=== PATIENT | female | born 1945 | race Caucasian/White ===

== ENCOUNTER → 2017-11-10 | Outpatient (CLI) | payer MEDICARE, OTHER ==
[~2017-11-10] MED LIST: ASCO-188 PO; ASCO-201 PO; ASPI-1471 PO; ASPI-715 PO; ATR80PT PO; BLOO-1318 MC; CALC-852 PO; CALC-922 PO; CALC250T7 PO; CALC600T63 PO; CEP500 PO; CHOL200022 PO; CLIN-75 PO; CYCL10TA29 PO; FAMO10TA86 PO; FLAX100053 PO; FLU45SYR17 IM; FLU45SYR25 IM ONLY; FLU60SYR30 IM ONLY; GLUC-178 PO; GLUC-198 PO; IBUP-56 PO; LEVO-311 PO; LEVO50 PO; LOVA40TA PO; LOVA40TA89 PO; METF-411 PO; METO-1 PO; METO-253 PO; METO1TAB19 PO; METXL50 PO; METXR500 PO; OXYC-865 PO; PNEU0.5D3 IM; RANI75TA5 PO; UBID200C21 PO; UBID50CA24 PO
--- NOTE | 2017-11-10 10:23 | RADIOLOGY IMAGING REPORT ---
FACILITY: [facility] PATIENT NAME: Carito Isbell : 1945 MR: [id number] V: [id number] EXAM DATE: ORDERING PHYSICIAN: DUANE SOLER TECHNOLOGIST: Location: [facility] - [place] Patient: Carito Isbell : 1945 Visit/Account:[id number] Date of Sevice: 11/10/2017 EXAMINATION: MRI lumbar spine without IV contrast HISTORY: Low back pain with radiation to right posterior thigh. Bilateral low back pain with right-s ided sciatica. COMPARISON: None. TECHNIQUE: Multi-planar, multi-sequence lumbar spine MRI was performed without intravenous contrast administration. FINDINGS: Alignment: Normal. Vertebral marrow signal: Negative. Distal thoracic cord: Negative. Conus: negative, terminates at L1-2. Cauda equina: Negative. Paravertebral soft tissues: Negative. Visualized abdominal and pelvic structures: Negative. Disc spaces: Lower thoracic spine: Normal. L1-2: Disc desiccation with a minimal concentric disc bulge. No significant central canal or foramina l stenosis. L2-3: Mild concentric disc bulge and bilateral facet hypertrophy. No significant central canal or for aminal stenosis. L3-4: Broad-based disc protrusion with annular tear, bilateral facet hypertrophy and ligamentum flavu m laxity. Trace effusions in the facet joints. Mild bilateral foraminal stenosis, right greater than left, without significant central canal stenosis. L4-5: Mild disc space narrowing and desiccation with a mild concentric disc bulge. There is a superim posed right paracentral disc protrusion. Bilateral facet hypertrophy and ligamentum flavum laxity wit h trace effusions in the facet joints. Moderate central canal stenosis and severe right lateral reces s stenosis with mass effect on the transiting right L5 nerve root. Mild bilateral foraminal stenosis. L5-S1: Broad-based disc protrusion with annular tear and bilateral facet hypertrophy. No significant central canal or foraminal stenosis. IMPRESSION: 1. Degenerative disc disease and facet arthropathy is worst at L4-5 where there is a right paracentra l disc protrusion causing severe right lateral recess stenosis and mass effect on the transiting righ t L5 nerve root. Please see the findings for description of individual level disease. 2. Annular tears at L3-4 and L5-S1. Report Dictated By: Harper Torres MD at 11/10/2017 10:15 AM Report E-Signed By: Harper Torres MD at 11/10/2017 10:19 AM WSN:[email or web address]
== END ==
LOC: MRI 06:01
PROVIDERS: ATTEND Internal Medicine
DX: M51.36 Other intervertebral disc degeneration, lumbar region (principal); M48.061 Spinal stenosis, lumbar region without neurogenic claudication; M51.26 Other intervertebral disc displacement, lumbar region
CPT/HCPCS: 72148

== ENCOUNTER → 2018-01-07 | Outpatient (CLI) | payer MEDICARE, OTHER ==
[~2018-01-07] MED LIST changes: +GADOBENATE 529MG/1ML 15ML VIAL IVP ONE
--- NOTE | 2018-01-07 10:28 | RADIOLOGY IMAGING REPORT ---
FACILITY: [facility] PATIENT NAME: Carito Isbell : 1945 MR: [id number] V: [id number] EXAM DATE: ORDERING PHYSICIAN: BELEM LAMBERT TECHNOLOGIST: Location: [facility] Patient: Carito Isbell : 1945 Visit/Account:[id number] Date of Sevice: 01/07/2018 EXAMINATION: L SPINE W W/O CONTRAST INDICATION: Laminotomy one month ago, low back pain, radiculopathy COMPARISON: November 10, 2017 TECHNIQUE: Multiplane MR imaging was performed through the lumbar spine without and with contrast. 1 5 ml multihance injected. FINDINGS: Vertebral body height: Normal Conus position/signal: Normal Marrow signal: Normal Extraspinal structures including psoas muscles/paraspinal soft tissues: New enhancing postsurgical hi gh signal in the right posterior paraspinal soft tissues at the L4-5 level. New rim-enhancing postop erative fluid collection in the subcutaneous fat at this level measures 3.3 cm craniocaudad by 2.5 cm transverse. Right renal cyst noted. L1-2: Minimal disc bulge has decreased in size, mild unchanged right foraminal narrowing, otherwise n ormal. L2-3: Normal. L3-4: Unchanged posterior disc annular fissure and minimal unchanged disc protrusion. Unchanged liga mentum flavum thickening and mild facet arthropathy. Mild unchanged canal narrowing and bilateral la teral recess narrowing. Mild unchanged left and mild unchanged right foraminal narrowing. L4-5: High signal within the posterior disc is new in keeping with postsurgical change or new disc an nular fissure. Right posterior disc protrusion/extrusion is unchanged in size measuring 5 mm AP dime nsion. This partially effaces the right lateral recess which has decreased. New right laminectomy d efect and new postsurgical absence of the ligamentum flavum. Mild to moderate unchanged right foraminal narrowing and mild unchanged left foraminal narrowing. Moderate unchanged disc space degeneration. L5 S1: Unchanged posterior disc annular fissure and minimal disc protrusion. Unchanged mild facet ar thropathy. No canal narrowing. Mild unchanged right foraminal narrowing. IMPRESSION: 1. New right L4-5 level laminectomy defect. 2. Persistent 5 mm AP dimension right posterior L4-5 disc protrusion/extrusion appears similar in si ze. There is new high signal within this disc protrusion/extrusion in keeping with postsurgical [place] ge or new disc annular fissure. This disc protrusion/extrusion partially effaces the right lateral recess which has decreased followi ng surgery. 3. Rim-enhancing postoperative fluid collection in the posterior subcutaneous fat at the L4-5 disc s pace level measures 3.3 x 2.5 cm. 4. Multilevel foraminal narrowing similar to prior, see level by level comments above. 5. See additional level by level comments above. Report Dictated By: Camilo Boston MD at 01/07/2018 10:12 AM Report E-Signed By: Camilo Boston MD at 01/07/2018 10:23 AM WSN:[id number]
== END ==
LOC: MRI 02:55
PROVIDERS: ATTEND Orthopaedic Surgery Orthopaedic Surgery of the Spine
DX: M47.27 Other spondylosis with radiculopathy, lumbosacral region (principal); Z48.89 Encounter for other specified surgical aftercare
CPT/HCPCS: 72158; A9577

== ENCOUNTER → 2018-11-15 | Outpatient (CLI) | payer MEDICARE, OTHER ==
[~2018-11-15] MED LIST changes: +AMOX-559 PO; +CHOL200018 PO; -CHOL200022 PO; -GADOBENATE 529MG/1ML 15ML VIAL IVP ONE; +LOSA50TA80 PO; -METF-411 PO; +METF-450 PO; +METO50TA19 PO; -RANI75TA5 PO; +RANI75TA51 PO; +ROSU20TA5 PO
[2018-11-15 15:00] LABS: PLATELET COUNT, AUTOMATED 244 K/uL (150-450)
== END ==
LOC: LAB 13:51
PROVIDERS: ATTEND Emergency Medicine
DX: Z03.89 Encounter for observation for other suspected diseases and conditions ruled out (principal); E03.9 Hypothyroidism, unspecified; M85.80 Other specified disorders of bone density and structure, unspecified site; E11.9 Type 2 diabetes mellitus without complications; G62.9 Polyneuropathy, unspecified
CPT/HCPCS: 36415; 82040; 82247; 82306; 82310; 82374; 82435; 82465; 82565; 82607; 82947; 83036; 83718; 84075; 84132; 84155; 84295; 84443; 84450; 84460; 84478; 84520; 85025

== ENCOUNTER → 2018-11-16 | Outpatient (CLI) | payer MEDICARE, OTHER | LOC: LAB 10:46 | PROVIDERS: ATTEND Emergency Medicine | DX: Z03.89 Encounter for observation for other suspected diseases and conditions ruled out (principal); M85.80 Other specified disorders of bone density and structure, unspecified site; E11.9 Type 2 diabetes mellitus without complications; E83.52 Hypercalcemia; E03.9 Hypothyroidism, unspecified | CPT/HCPCS: 36415; 82306; 82310; 82607; 83519; 83970; 84165 ==

== ENCOUNTER 2018-11-30 14:49 | Emergency (ER) | payer MEDICARE, OTHER ==
[2018-11-30] MEDS ORDERED: ASPIRIN 81 MG CHEW PO ONE (15:00)
--- NOTE | 2018-11-30 15:04 | ER Report ---
History and Physical Time Seen By MD: 15:01 Hx. of Stated Complaint: STATES TACHY FOR LAST WEEK. CHEST TIGHTNESS BEGAN AT 1200 TODAY (VALENCIA SARKAR MD) HPI/ROS CHIEF COMPLAINT: Rapid heart rate. HISTORY OF PRESENT ILLNESS: Patient is a 73-year-old female who presents emergency department with not feeling well over the last week and feelings of rapid heart rate with exertion. Patient states symptoms have been going on for a week. No prior similar episodes. She denies infectious symptoms including fevers or chills. She denies abdominal pain, nausea or vomiting. REVIEW OF SYSTEMS: Constitutional: No fever, no chills. Eyes: No discharge. ENT: No sore throat. Cardiovascular: Palpitations, rapid heart rate Respiratory: No cough, no shortness of breath. Gastrointestinal: No abdominal pain, no vomiting. Genitourinary: No hematuria. Musculoskeletal: No back pain. Skin: No rashes. Neurological: No headache. (VALENCIA SARKAR MD) Allergies: Coded Allergies: Fish Containing Products (Unverified Allergy, Mild, 11/30/18) codeine (Unverified Adverse Reaction, Mild, NAUSEA/VOMITING, 11/30/18) Home Meds Active Scripts Metformin Hcl (METFORMIN HCL) 500 Mg Tablet, 1 TAB PO QDAY, #90 TAB 3 Refills Prov:XU RIVERS MD 11/15/18 Levothyroxine Sodium (LEVOXYL) 50 Mcg Tablet, 1 TAB PO QDAY, #90 TAB 3 Refills Prov:XU RIVERS MD 11/15/18 Losartan Potassium (LOSARTAN POTASSIUM) 50 Mg Tablet, 50 MG PO QDAY, #30 TAB Prov:XU RIVERS MD 11/15/18 Metoprolol Succinate (METOPROLOL SUCCINATE) 50 Mg Tab.er.24h, 1 TAB PO QDAY, #30 TAB 11 Refills Prov:XU RIVERS MD 11/15/18 Rosuvastatin Calcium (Rosuvastatin Calcium) 20 Mg Tablet, 1 TAB PO DAILY, #30 TAB 11 Refills Prov:XU RIVERS MD 11/15/18 One Touch Ultra Test Strips (ONE TOUCH ULTRA TEST STRIPS) 1 Each Strip, 1 STRIP MC DAILY, #50 STRIP 12 Refills Prov:DUANE SOLER MD 05/03/17 Reported Medications Calcium Carbonate (CALCIUM) 600 Mg Tablet, 1 TAB PO BID 11/25/17 Ranitidine Hcl (RANITIDINE HCL) 75 Mg Tablet, 1 TAB PO DAILY PRN for heartburn 12/01/16 Glucosa Orta 2KCL/Chondroitin Orta (GLUCOSAMINE & CHONDROITIN CAP) 1 Each Capsule, 1 CAP PO BID, CAPSULE 03/17/16 Cholecalciferol (Vitamin D3) (VITAMIN D) 2,000 Unit Tablet, 1 TAB PO QDAY, CAPSULE 04/10/15 Ascorbic Acid (VITAMIN C) 500 Mg Tab.chew, 1 TAB PO QDAY, TAB.CHEW 04/10/15 Aspirin (ASPIR 81) 81 Mg Tablet.dr, 1 TAB PO QDAY, TAB 06/20/14 Past Medical/Surgical History Past medical history for coronary artery disease, hyperlipidemia, type II diabetes, hypothyroidism past surgical history for tonsillectomy, coronary stent 2002, appendectomy, hysterectomy, oophorectomy (VALENCIA SARKAR MD) Hx Smoking: No Smoking Status: Never Smoker Exposure to Second Hand Smoke?: Yes (VALENCIA SARKAR MD) Constitutional Vital Sign - Last 24 Hours 11/30/18 11/30/18 11/30/18 11/30/18 14:57 15:00 15:02 15:30 Pulse 84 80 75 Resp 20 35 11 B/P (MAP) 199/131 164/99 (120) 120/83 (95) Pulse Ox 93 98 O2 Delivery Nasal Cannula O2 Flow Rate 2.0 11/30/18 16:00 Pulse 76 Resp 25 B/P (MAP) 141/131 (134) Pulse Ox 96 (LAURORA,CYNTHIA V DO) Physical Exam General/Constitutional: Patient is awake, tearful and anxious appearing Head: Normocephalic and atraumatic. Eyes: Conjunctival clear, Pupils are equal and reactive to light. Extraocular muscles are intact and symmetrical. Sclera are clear and anicteric. Oropharyngeal: Mucous membranes are moist. There is no pharyngeal erythema or exudate. There are no palatal petechiae. Uvula is midline and symmetrical. Neck: Supple, no adenopathy. Cardiovascular: Heart is regular rate and rhythm without audible murmurs, rubs or gallops. Pulmonary: Lungs are clear to auscultation bilaterally. There are no wheezes, rales, or rhonchi. Chest rise is symmetrical Abdomen: Soft, nontender, no guarding or peritoneal signs. Extremities: No gross deformities, No peripheral cyanosis. Able to move all 4 extremities. Neuro: Alert and oriented X3, Skin: No rashes, skin is warm dry and well perfused. (VALENCIA SARKAR MD) Medical Decision Making Data Points Result Diagram: 11/30/18 1502 11/30/18 1502 Laboratory Hematology Test 11/30/18 15:02 Red Blood Count 4.47 M/uL (4.17-5.56) Mean Corpuscular Volume 90.9 fL (80.0-96.0) Mean Corpuscular Hemoglobin 30.8 pg (26.0-33.0) Mean Corpuscular Hemoglobin Concent 33.9 g/dL (32.0-36.0) Red Cell Distribution Width 12.6 % (11.5-14.5) Mean Platelet Volume 10.0 fL (7.2-11.1) Neutrophils (%) (Auto) 76.0 % (39.4-72.5) Lymphocytes (%) (Auto) 15.0 % (17.6-49.6) Monocytes (%) (Auto) 5.6 % (4.1-12.4) Eosinophils (%) (Auto) 2.7 % (0.4-6.7) Basophils (%) (Auto) 0.7 % (0.3-1.4) Nucleated RBC Relative Count (auto) 0.0 /100WBC Neutrophils # (Auto) 7.9 K/uL (2.0-7.4) Lymphocytes # (Auto) 1.6 K/uL (1.3-3.6) Monocytes # (Auto) 0.6 K/uL (0.3-1.0) Eosinophils # (Auto) 0.3 K/uL (0.0-0.5) Basophils # (Auto) 0.1 K/uL (0.0-0.1) Nucleated RBC Absolute Count (auto) 0.00 K/uL Prothrombin Time 12.4 seconds (12.0-14.4) Prothromb Time International Ratio 0.92 Activated Partial Thromboplast Time 29 seconds (23-35) Sodium Level 140 mmol/L (137-145) Potassium Level 4.2 mmol/L (3.5-5.0) Chloride Level 100 mmol/L (98-107) Carbon Dioxide Level 27 mmol/L (22-31) Blood Urea Nitrogen 23 mg/dl (7-18) Creatinine 1.10 mg/dl (0.52-1.04) Glomerular Filtration Rate Calc 48.6 Random Glucose 126 mg/dl (75-110) Calcium Level 10.6 mg/dl (8.4-10.2) Total Bilirubin 0.4 mg/dl (0.2-1.3) Aspartate Amino Transf (AST/SGOT) 27 U/L (0-35) Alanine Aminotransferase (ALT/SGPT) 29 U/L (0-56) Alkaline Phosphatase 83 U/L (0-126) Troponin I < 0.012 ng/ml B-Type Natriuretic Peptide 58 pg/ml (0-100) Total Protein 8.1 g/dl (6.3-8.2) Albumin 4.7 g/dl (3.5-5.0) Chemistry Test 11/30/18 15:02 White Blood Count 10.4 k/uL (4.5-11.0) Red Blood Count 4.47 M/uL (4.17-5.56) Hemoglobin 13.8 g/dL (12.0-16.0) Hematocrit 40.6 % (34.0-47.0) Mean Corpuscular Volume 90.9 fL (80.0-96.0) Mean Corpuscular Hemoglobin 30.8 pg (26.0-33.0) Mean Corpuscular Hemoglobin Concent 33.9 g/dL (32.0-36.0) Red Cell Distribution Width 12.6 % (11.5-14.5) Platelet Count 240 K/uL (150-450) Mean Platelet Volume 10.0 fL (7.2-11.1) Neutrophils (%) (Auto) 76.0 % (39.4-72.5) Lymphocytes (%) (Auto) 15.0 % (17.6-49.6) Monocytes (%) (Auto) 5.6 % (4.1-12.4) Eosinophils (%) (Auto) 2.7 % (0.4-6.7) Basophils (%) (Auto) 0.7 % (0.3-1.4) Nucleated RBC Relative Count (auto) 0.0 /100WBC Neutrophils # (Auto) 7.9 K/uL (2.0-7.4) Lymphocytes # (Auto) 1.6 K/uL (1.3-3.6) Monocytes # (Auto) 0.6 K/uL (0.3-1.0) Eosinophils # (Auto) 0.3 K/uL (0.0-0.5) Basophils # (Auto) 0.1 K/uL (0.0-0.1) Nucleated RBC Absolute Count (auto) 0.00 K/uL Prothrombin Time 12.4 seconds (12.0-14.4) Prothromb Time International Ratio 0.92 Activated Partial Thromboplast Time 29 seconds (23-35) Glomerular Filtration Rate Calc 48.6 Calcium Level 10.6 mg/dl (8.4-10.2) Total Bilirubin 0.4 mg/dl (0.2-1.3) Aspartate Amino Transf (AST/SGOT) 27 U/L (0-35) Alanine Aminotransferase (ALT/SGPT) 29 U/L (0-56) Alkaline Phosphatase 83 U/L (0-126) Troponin I < 0.012 ng/ml B-Type Natriuretic Peptide 58 pg/ml (0-100) Total Protein 8.1 g/dl (6.3-8.2) Albumin 4.7 g/dl (3.5-5.0) Coagulation Test 11/30/18 15:02 Prothrombin Time 12.4 seconds Prothromb Time International Ratio 0.92 Activated Partial Thromboplast Time 29 seconds (CYNTHIA BENTLEY DO) EKG/Imaging EKG Interpretation EKG shows normal sinus rhythm with a ventricular rate of [address] segment or T-wave abnormalities. Monitor Interpretation: Normal Sinus Rhythm (VALENCIA SARKAR MD) ED Course/Re-evaluation Clinical Indication for ER IV: IV Access ED Course Patient with complaint of rapid heart rate, patient's recently had study that was concerning for cancer and is getting worked up. Feel the patient's symptoms do have an anxiety component to it. We will perform cardiac workup and disposition appropriately. Decision to Disposition Date: Nov 30, 2018 Decision to Disposition Time: 20:00 (VALENCIA SARKAR MD) ED Course 11/30/2018 4:01:54 pm Pt signed out to me pending labs and cxr. CXR shows a possible nodule. Spoke with radiologist, Dr. Young who recommend a CT of chest with contrast either now or as out patient. I did speak with patient and she would like to have it now while she is waiting for second troponin. Pt is very anxious and tearful. Ativan was ordered by Dr. Sarkar but pt refused. PT states that her had a colonscopy that was concerning for cancer. I suspect some of pts symptoms are related to anxiety to her husbands findings. Will keep for second troponin however due to pts risk factors. Will give pt fluids due to mildly dehydrated and radiologist would like contrast. 11/30/2018 5:37:[address] report. PT was not aware of the hiatal hernia or the thyroid nodules. Pt was instructed to obtain an US as out patient with Dr. Rivers her pcp. Pt tsh is pending and she was aware will not be back today. 11/30/2018 5:58:52 pm [address] out to Dr. Lanza pending second troponin. Decision to Disposition Date: Nov 30, 2018 (CYNTHIA BENTLEY DO) ED Course Care was assumed at shift change with a 2nd. Diagnostic troponin pending at 1900. It was unremarkable. The results were discussed with the patient. She is advised to follow up primary care for further diagnostic evaluation as needed. Decision to Disposition Date: Nov 30, 2018 Decision to Disposition Time: 19:32 (FER LANZA DO) Depart Departure Latest Vital Signs Vital Signs Date Time Temp Pulse Resp B/P (MAP) Pulse Ox O2 Delivery O2 Flow Rate FiO2 11/30/18 16:00 76 25 141/131 (134) 96 11/30/18 15:02 2.0 11/30/18 14:57 Nasal Cannula (CYNTHIA BENTLEY DO) Impression: Primary Impression: Chest pain, unspecified Additional Impression: Mild dehydration Condition: Stable Disposition: HOME OR SELF-CARE Referrals: XU RIVERS MD (PCP) Patient Instructions: Chest Pain (ED) Additional Instructions: Follow-up with Dr. Rivers within one week Problem Qualifiers Primary Impression: Chest pain, unspecified Chest pain type: unspecified Qualified Codes: R07.9 - Chest pain, unspecified VALENCIA SARKAR MD Nov 30, 2018 15:04 CYNTHIA BENTLEY DO Nov 30, 2018 16:05 FER LANZA DO Nov 30, 2018 19:33
--- NOTE | 2018-11-30 15:10 | EKG ---
FACILITY: [facility] PATIENT NAME: LAURA ONTIVEROS : [id number] MR: [id number] V: [id number] EXAM DATE: ORDERING PHYSICIAN: VALENCIA SAENZ TECHNOLOGIST: Test Reason : rapid hr Blood Pressure : / mmHG Vent. Rate : 079 BPM Atrial Rate : 079 BPM P-R Int : 160 ms QRS Dur : 068 ms QT Int : 370 ms P-R-T Axes : 061 015 075 degrees QTc Int : 424 ms Sinus rhythm Possible left atrial enlargement Artifact in limb leads - repeat if needed No previous ECGs available Confirmed by FAIZA JASSO ([id number]) on 11/30/2018 8:21:01 PM Referred By: Confirmed By:FAIZA JASSO
[2018-11-30] MEDS ORDERED: LORazepam 2 MG/ML VIAL IVP ONE (15:15)
[2018-11-30 15:16] LABS: PLATELET COUNT, AUTOMATED 240 K/uL (150-450)
[2018-11-30 15:29] LABS: INR 0.92
--- NOTE | 2018-11-30 15:46 | RADIOLOGY IMAGING REPORT ---
FACILITY: [facility] PATIENT NAME: Carito Isbell : 1945 MR: [id number] V: [id number] EXAM DATE: ORDERING PHYSICIAN: VALENCIA SAENZ TECHNOLOGIST: Location: [facility] Patient: Carito Isbell : 1945 Visit/Account:[id number] Date of Sevice: 11/30/2018 Exam type: CHEST SINGLE AP History: Chest Pain Comparison: January 07, 2009. Findings: There is a 1.7 cm nodular area of increased density projecting just to the right of midline in the ri ght mid thorax projecting over the upper right heart border. This is not appreciated on the prior st udy. There is a subtle area of increased density projecting over the medial right lung base not appr eciated previously. This could represent a small area of atelectasis or developing infiltrate. Ther e is no evidence of pleural effusions or overt pulmonary edema. The cardiac silhouette is normal in size. IMPRESSION: 1. There is a 1.7 cm nodular area of increased density projecting just medial to midline over the ri ght mid thorax not appreciated previously. Although this could represent a superimposed vascular str ucture a pulmonary nodule should be excluded. A follow-up PA and lateral chest or chest CT recommend ed Subtle area of increased density projects over the medial right lung base which may represent infiltr ate and/or atelectasis Report Dictated By: Kayla Dunaway MD at 11/30/2018 3:39 PM Report E-Signed By: Kayla Dunaway MD at 11/30/2018 3:42 PM WSN:[email or web address]
[2018-11-30] MEDS ORDERED: NS(*) 0.9% 1000 ML BAG 1,000 ML IV ONE (16:00)
[2018-11-30] MEDS ORDERED: PANTOPRAZOLE SOD 40 MG IV VIAL IVP ONE (16:00)
[2018-11-30] MEDS ORDERED: IOPAMIDOL 76% 100 ML INFUS BTL 100 ML ONE (16:35)
--- NOTE | 2018-11-30 17:04 | RADIOLOGY IMAGING REPORT ---
FACILITY: [facility] [place] PATIENT NAME: Carito Isbell : 1945 MR: [id number] V: [id number] EXAM DATE: ORDERING PHYSICIAN: CYNTHIA BENTLEY TECHNOLOGIST: Location: [facility] [place] Patient: Carito Isbell : 1945 Visit/Account:[id number] Date of Sevice: 11/30/2018 CT CHEST (CONTRAST) History: nodule on xray TECHNIQUE: Contiguous axial images were performed through the chest to the level of the adrenal gla nds following the administration of IV contrast. Coronal and sagittal reformatting was also perform ed.Dose Lowering Technique One of the following dose optimization techniques was utilized in the performance of this exam: Autom ated exposure control; adjustment of the mA and/or kV according to the patient's size; or use of an i terative reconstruction technique. Specific details can be referenced in the facility's radiology C T exam operational policy. Contrast: 75 mL [id number] COMPARISON STUDIES: Single view chest radiograph performed today. And CT abdomen pelvis October 11, 2009 Lungs / Pleura: There is no evidence of pulmonary nodules, pulmonary infiltrates or pleural effusio ns. The rounded masslike area seen in the medial portion of the right mid thorax on the recent chest radiograph likely represented a branch of the right pulmonary artery seen on end Mediastinum/nodes: negative. Heart and vessels: There are at least moderate coronary artery calcifications Musculoskeletal / Body wall: There appears to been a right hemithyroidectomy. There are several le sions identified in the left lobe the largest measuring 3.3 cm in diameter. Thyroid ultrasound is re commended. There are spondylotic changes of the thoracic spine Upper abdomen: There is a small hiatal hernia. There is a 1.8 x 1.6 x 1.7 cm cm heterogeneous part ially enhancing mass projecting from the upper pole the right kidney. This is slightly increased in size when compared the prior study when measured in the same tissue planes. This mass has been previ ously evaluated sonographically and appear to be echogenic sonographically. 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 The rounded masslike area seen in the medial portion right mid tho rax on the recent chest radiograph likely represented a branch of the right pulmonary artery seen on end At least moderate coronary artery calcifications There appears to been a right hemithyroidectomy. There are several nodules identified in the left lo be, the largest measuring 3.3 cm in diameter. Thyroid ultrasound is recommended Small hiatal hernia. There is a heterogeneous partially enhancing mass projecting from the upper pole the right kidney. T his is slightly increased in size when compared to the prior study from 2009. 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
[2018-11-30 19:30] VITALS: BP 123/65
== END 2018-11-30 19:37 | disposition home or self-care (01) ==
LOC: ER 15:04
DX: R07.9 Chest pain, unspecified (principal); E86.0 Dehydration
CPT/HCPCS: 71045; 71260; 83880; 84443; 84484; 85025; 85610; 85730; 93005; 96361; 96374; 99284; A9270; C9113; J7030; Q9967; 82040; 82247; 82310; 82374; 82435; 82565; 82947; 84075; 84132; 84155; 84295; 84450; 84460; 84520

== ENCOUNTER → 2018-12-13 | Outpatient (CLI) | payer MEDICARE, OTHER ==
[~2018-12-13] MED LIST changes: +ROSU20TA24 PO
== END ==
LOC: LAB 11:10
PROVIDERS: ATTEND Emergency Medicine
DX: I10 Essential (primary) hypertension (principal)
CPT/HCPCS: 36415; 82310; 82374; 82435; 82465; 82565; 82947; 83718; 84132; 84295; 84478; 84520